=== PATIENT | male | born 1945 | race Caucasian/White ===

== ENCOUNTER → 2024-12-07 | Outpatient (CLI) | payer MEDICARE ==
--- NOTE | 2024-12-08 06:44 | HMCIMG ---
EXAMINATION: DUPLEX ULTRASOUND EXAMINATION OF THE BILATERAL CAROTID AND VERTEBRAL ARTERIES. CLINICAL HISTORY: To rule out occlusion and stenosis of carotid arteries. COMPARISON: None provided. TECHNIQUE: Real-time ultrasound scan of the bilateral carotid and vertebral arteries, 2-D grayscale, with color Doppler flow and spectral waveform analysis. FINDINGS: Color and spectral Doppler interrogation of the carotid vessels on the right demonstrate peak systolic velocities as follows: CCA (Proximal and distal): 67 and 77 cm/s respectively. ECA: 130 cm/s. ICA (Proximal, mid, and distal): 85, 94, and 67 cm/s respectively. Vertebral artery demonstrates antegrade flow: 44 cm/s. Right ICA/CCA ratio: 1.2 Peak systolic velocities on the left are as follows: CCA (Proximal and distal): 110 and 89 cm/s respectively. ECA: 127 cm/s. ICA (Proximal, mid, and distal): 82, 99, and 105 cm/s respectively. Vertebral artery demonstrates antegrade flow: 45 cm/s. Left ICA/CCA ratio: 1.2 Both the common carotid arteries and their branches reveal mild intimal thickening. There are calcified and soft plaques in the right common carotid artery without significant stenosis. There is a calcified plaque in the left distal common carotid artery without significant stenosis. IMPRESSION: Mild intimal thickening in the bilateral carotid arteries and their branches. Plaques as described. There is no significant flow limiting lesions in the remainder of the arteries. /[place]
== END | disposition home or self-care (01) ==
LOC: RAH 14:38
PROVIDERS: ATTEND Family Medicine
DX: I65.23 Occlusion and stenosis of bilateral carotid arteries (principal)
CPT/HCPCS: 93880